=== PATIENT | male | born 1985 | race Two or more races ===

== ENCOUNTER 2022-11-27 10:06 | Emergency (ER) | payer MEDICAID, OTHER ==
[~2022-11-27] VITALS: Ht 162.6 cm; Wt 95.3 kg
--- NOTE | 2022-11-27 10:20 | NUR ---
AT BEDSIDE FOR EVAL
--- NOTE | 2022-11-27 10:25 | NUR ---
evaluated pt at bedside
[2022-11-27] MEDS ORDERED: KETOROLAC TROMETHAMINE INJ 30 MG/ML VIAL IM ONE (10:30)
[2022-11-27] MEDS ORDERED: predniSONE 20 MG TABLET PO ONE (10:30)
[2022-11-27] MEDS ORDERED: predniSONE 20 MG TABLET ONE ×2 (10:34→10:36)
[2022-11-27] MEDS ORDERED: KETOROLAC TROMETHAMINE 15 MG/ML VIAL ONE ×2 (10:34→10:36)
--- NOTE | 2022-11-27 10:35 | NUR ---
XRAY AT BEDSIDE
[2022-11-27] MEDS ORDERED: ALBU18HF2 INH (11:41)
[2022-11-27] MEDS ORDERED: BENZ-13 PO (11:41)
[2022-11-27] MEDS ORDERED: IBUP-1955 PO (11:41)
[2022-11-27] MEDS ORDERED: PRED20TA PO (11:41)
[2022-11-27 12:19] VITALS: BP 142/82
== END 2022-11-27 12:20 | disposition home or self-care (01) ==
LOC: ER 10:25
DX: J20.9 Acute bronchitis, unspecified (principal); J06.9 Acute upper respiratory infection, unspecified; R05.9 Cough, unspecified; R09.81 Nasal congestion; I10 Essential (primary) hypertension; Z20.822 Contact with and (suspected) exposure to COVID-19
CPT/HCPCS: 99284; 71045; 96372; U0003; J7512; J1885; C9803